=== PATIENT | male | born 1940 | race Caucasian/White ===

== ENCOUNTER 2023-07-19 07:57 | Emergency (ER) | payer MEDICARE ==
[~2023-07-19] VITALS: Ht 177.8 cm; Wt 69.1 kg
[2023-07-19 08:08] VITALS: TEMP 97.6
[2023-07-19 09:21] VITALS: BP 137/67; PULSE 77
== END 2023-07-19 09:31 | disposition home or self-care (01) ==
LOC: COL.ER 07:57
DX: S80.11XA Contusion of right lower leg, initial encounter (principal); Z79.01 Long term (current) use of anticoagulants; W01.0XXA Fall on same level from slipping, tripping and stumbling without subsequent striking against object, initial encounter; Y93.01 Activity, walking, marching and hiking; Y92.59 Other trade areas as the place of occurrence of the external cause